=== PATIENT | female | born 1980 | race Two or more races ===

== ENCOUNTER 2019-07-16 17:18 | Emergency (ER) | payer MEDICAID ==
[2019-07-16] MEDS ORDERED: IBUPROFEN 800 MG TABLET PO ONE (18:18)
--- NOTE | 2019-07-16 18:20 | ER Document Report ---
HPI - HPI Time Seen by Provider: 07/16/19 18:10 Pain Level: 2 Context: Patient is a 38-year-old female who presents to the emergency department with a chief complaint of left ear pain. Patient reports she is actually had a fullness in her bilateral ears for over a year and was always told that everything was okay. Patient reports over the past 3 days she has had significant pain to the posterior ear. Patient reports it feels like there is a sharp stabbing pain that radiates inside of her neck. Patient denies fever, nausea, drainage from the ear but does report slight vertigo. Patient reports she is taking Excedrin Migraine and a Flexeril for her discomfort but that this has not helped. Patient states she did go to the urgent care but was sent here to rule out mastoiditis as she has significant tenderness to the left mastoid. - REPRODUCTIVE Reproductive: DENIES: : Past Medical History - General Information source: Patient - Social History Smoking Status: Never Smoker Chew tobacco use (# tins/day): No Frequency of alcohol use: None Drug Abuse: None Lives with: Family Family History: None Patient has suicidal ideation: No Patient has homicidal ideation: No - Past Medical History Cardiac Medical History: Reports: None Pulmonary Medical History: Reports: None EENT Medical History: Reports: None Neurological Medical History: Reports: Hx Migraine Endocrine Medical History: Reports: None Renal/ Medical History: Reports: None Malignancy Medical History: Reports: None GI Medical History: Reports: None Musculoskeletal Medical History: Reports None Skin Medical History: Reports None Psychiatric Medical History: Reports: None Traumatic Medical History: Reports: None Infectious Medical History: Reports: None Surgical Hx: Negative Vertical Provider Document - CONSTITUTIONAL Agree With Documented VS: Yes Exam Limitations: No Limitations General Appearance: No Apparent Distress - INFECTION CONTROL TRAVEL OUTSIDE OF THE [place] IN LAST 30 DAYS: No - HEENT HEENT: Atraumatic, Normocephalic, PERRLA Notes: Patient right pinna without tenderness, there is no right tragus or mastoid tenderness. TM on the right side is pearly alanis without bulging or erythema. There is no drainage coming from the ear. Left pinna without tenderness, there is no tragus tenderness. There is no mastoid tenderness with palpation. There is no erythema or swelling noted to the external ear or to the mastoid. TM on the left side is pearly alanis without bulging or erythema. There is no fluid behind the ear. There is no drainage coming from the ear. - NECK Neck: Normal Inspection Notes: No cervical lymphadenopathy. - RESPIRATORY Respiratory: Breath Sounds Normal, No Respiratory Distress - CARDIOVASCULAR Cardiovascular: Regular Rate, Regular Rhythm - GI/ABDOMEN Gastrointestinal: Abdomen Soft, Abdomen Non-Tender, Normal Bowel Sounds - BACK Back: Normal Inspection - MUSCULOSKELETAL/EXTREMETIES Musculoskeletal/Extremeties: FROM, Non-Tender - NEURO Level of Consciousness: Awake, Alert, Appropriate - DERM Integumentary: Warm, Dry, No Rash Course - Re-evaluation Re-evalutation: 07/16/19 19:52 I did discuss the results of the CT scan with the patient. Patient nontoxic- appearing. Patient does not have any redness or significant tenderness to the outside of the ear. I did inform the patient strict return precautions and to please follow-up with the ENT. - Vital Signs Vital signs: Temp Pulse Resp BP Pulse Ox 98.9 F 71 142/89 H 97 07/16/19 17:51 07/16/19 17:40 07/16/19 17:40 07/16/19 17:51 - Diagnostic Test Radiology reviewed: Reports reviewed Radiology results interpreted by me: 07/16/19 19:[address] 07/16/19 18:16 IMPRESSION: NO ACUTE FINDINGS. Discharge - Discharge Clinical Impression: Chronic ear pain Qualifiers: Laterality: bilateral Qualified Code(s): H92.03 - Otalgia, bilateral Condition: Stable Disposition: HOME, SELF-CARE Additional Instructions: Today you are seen the emergency department for left ear pain. You did report having a fullness to both of your ears over the past year but worsening to the left ear over the past 3 days. You were sent here from the urgent care to rule out mastoiditis. Your CAT scan was negative for any acute abnormality. Please follow-up with ENT, I provided you with a referral attached your discharge paperwork as you have had issues for a long period of time. Referrals: EDWARD LOPES MD [ACTIVE STAFF] - Follow up as needed LIDIA GRAF DO [ASSOCIATE] - Follow up as needed
--- NOTE | 2019-07-16 19:14 | RADIOLOGY REPORT (SQ) ---
EXAM DESCRIPTION: CT ORBIT/SELLA WITHOUT COMPLETED DATE/TIME: 07/16/2019 6:57 pm REASON FOR STUDY: rule out mastoiditis, left side COMPARISON: None. TECHNIQUE: Noncontrasted images through the orbits windowed for bone and soft tissue. Additional co maximus and sagittal reconstructed images reviewed. All images stored on PACS. All CT scanners at this facility use dose modulation, iterative reconstruction, and/or weight based d osing when appropriate to reduce radiation dose to as low as reasonably achievable (ALARA). [facility]: Dose Right [facility]: CareDose [facility]: Dose Right [facility]: Teradose 4D [facility]: Smart GameWith RADIATION DOSE: CT Rad equipment meets quality standard of care and radiation dose reduction techniq ues were employed. CTDIvol: 30.4 mGy. DLP: 488 mGy-cm. mGy. LIMITATIONS: None. FINDINGS: FACIAL BONES: No fracture or bone lesion. ORBITS: Intact. No fracture. Symmetric intact globes and retroorbital soft tissues. PARANASAL SINUSES: Clear. No significant mucosal thickening, mass or fluid. No nasal polyps. Maxilla ry sinus outlets are patent. SOFT TISSUES: No mass or edema. INFERIOR BRAIN: Limited view. No acute findings. OTHER: No other significant finding. IMPRESSION: NO ACUTE FINDINGS. TECHNICAL DOCUMENTATION: JOB ID: [id number] Quality ID # [id number]: Final reports with documentation of one or more dose reduction techniques (e.g., Au tomated exposure control, adjustment of the mA and/or kV according to patient size, use of iterative reconstruction technique) 2010 [employer]- All Rights Reserved Reading location - IP/workstation name: [email or web address]
[2019-07-16 20:03] VITALS: BP 141/95
== END 2019-07-16 20:03 | disposition home or self-care (01) ==
LOC: ER 17:18
DX: H92.03 Otalgia, bilateral (principal)
CPT/HCPCS: 70480; J3490; 99283